=== PATIENT | male | born 1990 | race Two or more races ===

== ENCOUNTER 2016-10-02 14:22 | Emergency (ER) | payer BC ==
[2016-10-02 14:32] VITALS: BP 163/99; PULSE 75; RESP 18; TEMP 99; O2SAT 96
--- NOTE | 2016-10-02 15:08 | EDPHY ---
H & P Chief Complaint Nursing Narrative: c/o cough/congestion/body aches HPI/ROS: HPI CHIEF COMPLAINT: Cough nasal congestion HISTORY OF PRESENT ILLNESS: This patient very pleasant 26-year-old male denies any significant medical history except for attention deficit hyperactivity disorder, presents to the urgent care with 2-3 days of upper respiratory tract infection symptoms. He tells me he has been coughing for 3 days. Tells me he has not had fever but has had chills. Nonproductive cough. Denies chest pain or shortness of breath. Tells me he has had sore throat, nasal congestion, postnasal drip, ear pain. Past Medical History: Attention deficit hyperactivity disorder Past Surgical History: denies significant surgical history Social History: denies use of drugs, tobacco, does endorse alcohol, works in restaurant business Family History: Noncontributory ROS REVIEW OF SYSTEMS: A comprehensive 10 point review of systems is otherwise negative aside from elements mentioned in the history of present illness. Exam Constitutional appears well nontoxic, triage nursing summary reviewed, vital signs reviewed, awake/alert. Eyes normal conjunctivae and sclera, EOMI, PERRLA. HENT left TM is erythematous bulging, right TM normal, posterior pharynx no significant exudate, no significant swelling, nasal congestion present on exam normal inspection, atraumatic, moist mucus membranes, no epistaxis, neck supple / no meningismus, no raccoon eyes. Respiratory clear to auscultation bilaterally, normal breath sounds, no respiratory distress, no wheezing. Cardiovascular rate normal, regular rhythm, no murmur, no edema, distal pulses normal. Gastrointestinal soft, non-tender, no rebound, no guarding, normal bowel sounds, no distension, no pulsatile mass. Genitourinary no CVA tenderness. Musculoskeletal no midline vertebral tenderness, full range of motion, no calf swelling, no tenderness of extremities, no meningismus, good pulses, neurovascularly intact. Skin pink, warm, & dry, no rash, skin atraumatic. Neurologic awake, alert and oriented x 3, AAOx3, moves all 4 extremities equally, motor intact, sensory intact, CN II-XII intact, normal cerebellar, normal vision, normal speech. Psychiatric normal mood/affect. Heme/Lymph/Immune no lymphadenopathy. Differential Diagnosis: Includes but is not limited to in a particular order upper respiratory tract infection, sinusitis, influenza, bronchitis, otitis media Medical Decision Making: Patient appears to have an otitis media, upper respiratory tract infection exam. Has a bronchitic sounding cough. The lungs are clear. Patient appears well nontoxic negative influenza. History placed on Z-Titi, prednisone, guaifenesin, ibuprofen, [place]. He understands return to the ER if he develops any worsening symptoms questions or concerns. Source: Patient - Personal History Current Tetanus Diphtheria and Acellular Pertussis (TDAP): Yes - Medical/Surgical History Other PMH: denies - Social History Smoking Status: Never smoked Constitutional: Initial Vital Signs Temperature (C) 37.2 C 10/02/16 14:29 Heart Rate 75 10/02/16 14:29 Respiratory Rate 18 10/02/16 14:29 Blood Pressure 163/99 H 10/02/16 14:29 O2 Sat (%) 96 10/02/16 14:29 O2 Delivery Mode Room Air Allergies/Adverse Reactions: No Known Allergies Allergy (Unverified 10/02/16 14:29) Home Medications: Medication Instructions Recorded AZITHROMYCIN [Z-PACK] 250 mg PO DAILY #6 tab 10/02/16 Guaifenesin [Guaifenesin ER] 600 mg PO BID #14 tab.er.12h 10/02/16 Hydrocodone/APAP 5/325 [[place] 1 - 2 tab PO Q4H PRN #7 tab 10/02/16 5/325] Ibuprofen [Motrin (*)] 800 mg PO Q6-8PRN #7 tab 10/02/16 VYVANSE 10/02/16 predniSONE 60 mg PO DAILY #15 tab 10/02/16 Medical Decision Making - Data Points Laboratory Results: 10/02/16 14:35 Influenza Typ A,B (DFA) NEGATIVE FOR FLU (NEGATIVE) Departure - Departure Disposition: Home, Routine, Self-Care Clinical Impression: Bronchitis URI (upper respiratory infection) Qualifiers: URI type: unspecified viral URI Qualifier Code: (J06.9) Acute upper respiratory infection, unspecified Condition: Good Instructions: Acute Bronchitis (ED), Upper Respiratory Infection (ED) Additional Instructions: 1. drink lots of fluids stay well-hydrated 2. return to the emergency room urgent care if he has any worsening symptoms questions or concerns Referrals: NONE *PRIMARY CARE P,. [Primary Care Provider] - As per Instructions Prescriptions: Guaifenesin [Guaifenesin ER] 600 mg PO BID #14 tab.er.12h Ibuprofen [Motrin (*)] 800 mg PO Q6-8PRN #7 tab Hydrocodone/APAP 5/325 [[place] 5/325] 1 - 2 tab PO Q4H PRN #7 tab PRN Reason: Pain, Moderate AZITHROMYCIN [Z-PACK] 250 mg PO DAILY #6 tab predniSONE 60 mg PO DAILY #15 tab
== END 2016-10-02 15:25 | disposition home or self-care (01) ==
LOC: CED 14:22
DX: J40 Bronchitis, not specified as acute or chronic (principal); J06.9 Acute upper respiratory infection, unspecified
CPT/HCPCS: 87400-PO; G0463-PO